=== PATIENT | female | born 1965 | race Caucasian/White ===

== ENCOUNTER 2024-10-22 08:51 | Emergency (ER) | payer BC ==
[~2024-10-22] VITALS: Ht 167.6 cm; Wt 77.1 kg
[2024-10-22] MEDS ORDERED: AMOX-430 PO (09:15)
[2024-10-22] MEDS ORDERED: TDAP [DIPH/PERTUSSIS/TET] 0.5 ML VIAL IM ONE (09:18)
[2024-10-22] MEDS ORDERED: RABIES VACCINE (PCEC)/PF 1 EA KIT IM ONE (09:18)
[2024-10-22] MEDS: RABIES IMMUNE GLOBULIN/PF 150 UNIT/ML VIAL IM ONE (09:43)
[2024-10-22] MEDS: RABIES VACCINE (PCEC)/PF 1 EA KIT IM ONE (09:46)
[2024-10-22] MEDS: TDAP [DIPH/PERTUSSIS/TET] 0.5 ML VIAL IM ONE (09:47)
[2024-10-22 09:50] VITALS: BP 131/69; TEMP 98.2; O2SAT 100
[2024-10-22] MEDS ORDERED: ACETAMINOPHEN 325 MG TABLET ONE (10:58)
== END 2024-10-22 09:51 | disposition home or self-care (01) ==
LOC: ER 08:53
DX: S61.231A Puncture wound without foreign body of left index finger without damage to nail, initial encounter (principal); S61.232A Puncture wound without foreign body of right middle finger without damage to nail, initial encounter; I10 Essential (primary) hypertension; Z88.6 Allergy status to analgesic agent; W53.21XA Bitten by squirrel, initial encounter; Y93.89 Activity, other specified; Y92.89 Other specified places as the place of occurrence of the external cause; Y99.8 Other external cause status
CPT/HCPCS: 99284; 90375; 90675; 90472; 96372; 90471; 90715; A6403

== ENCOUNTER 2024-10-26 11:48 | Emergency (ER) | payer BC ==
[~2024-10-26] VITALS: Ht 165.1 cm; Wt 77.1 kg
[~2024-10-26 11:48] MED LIST: AMOX-430 PO
[2024-10-26] MEDS ORDERED: RABIES VACCINE (PCEC)/PF 1 EA KIT IM ONE (12:17)
[2024-10-26] MEDS: RABIES VACCINE (PCEC)/PF 1 EA KIT IM ONE (12:24)
[2024-10-26 12:52] LABS: BASOPHILS # (AUTO) 0.1 K/uL (0.0-0.2); BASOPHILS % (AUTO) 0.9 % (0.0-2.0); EOSINOPHILS # (AUTO) 0.3 K/uL (0.0-0.7); EOSINOPHILS % (AUTO) 2.9 % (0.0-6.0); HEMATOCRIT 38 % (33-45); HEMOGLOBIN 12.4 g/dL (11.5-14.8); LYMPHOCYTES # (AUTO) 3.6 K/uL (0.8-4.8); LYMPHOCYTES % (AUTO) 34.7 % (20.0-44.0); MEAN CORPUSCULAR HEMOGLOBIN 27 PG (26.0-33.0); MEAN CORPUSCULAR HGB CONC 33 g/dl (31.0-36.0); MEAN CORPUSCULAR VOLUME 83 fL (82-100); MONOCYTES % (AUTO) 9.7 % (2.0-12.0); NEUTROPHILS # (AUTO) 5.3 K/uL (1.8-8.9); NEUTROPHILS % (AUTO) 51.8 % (43.0-81.0); PLATELET COUNT (AUTO) 356 K/uL (150-450); RED BLOOD CELL COUNT(AUTO) 4.62 MIL/uL (4.0-5.2); RED CELL DISTRIBUTION WIDTH 15.2 % (11.5-15.0); WHITE BLOOD COUNT (AUTO) 10.3 K/uL (4.3-11.0)
[2024-10-26 13:02] LABS: CALCIUM, SERUM 9.4 mg/dL (8.5-10.1); CARBON DIOXIDE 27 mmol/L (21-32); CHLORIDE 104 mmol/L (98-107); CREATININE 0.9 mg/dL (0.6-1.3); GLUCOSE 116 mg/dL (74-106); POTASSIUM 3.7 mmol/L (3.5-5.1); SODIUM SERUM 137 mmol/L (136-145); UREA NITROGEN, BLOOD 21 mg/dL (7-18)
[2024-10-26 13:20] LABS: ALANINE AMINOTRANSFERASE 66 U/L (12-78); ALBUMIN 3.2 g/dL (3.4-5.0); ALKALINE PHOSPHATASE 156 U/L (46-116); ASPARTATE AMINOTRANSFERASE 47 U/L (15-37); BILIRUBIN,DIRECT 0.1 mg/dL (0.0-0.2); BILIRUBIN,TOTAL 0.3 mg/dL (0.2-1.0); NT-PRO BNP 104 pg/mL (0-125); TOTAL PROTEIN, SERUM 7.8 g/dL (6.4-8.2)
[2024-10-26 14:00] VITALS: BP 129/71; TEMP 98.1; O2SAT 99
== END 2024-10-26 15:39 | disposition home or self-care (01) ==
LOC: ER 11:51
DX: R07.89 Other chest pain (principal); I10 Essential (primary) hypertension; Z88.6 Allergy status to analgesic agent
CPT/HCPCS: 36415; 71045-TC; 80048-TC; 80076-TC; 83880; 84484-TC; 85025-TC

== ENCOUNTER 2024-10-30 10:00 | Emergency (ER) | payer BC ==
[~2024-10-30] VITALS: Ht 167.6 cm; Wt 79.4 kg
[2024-10-30 10:18] VITALS: BP 144/76; TEMP 98.8; O2SAT 99
[2024-10-30] MEDS ORDERED: DOXY100C2 PO (10:21)
== END 2024-10-30 10:27 | disposition home or self-care (01) ==
LOC: ER 10:03
DX: L03.011 Cellulitis of right finger (principal); L03.012 Cellulitis of left finger; I10 Essential (primary) hypertension; Z79.2 Long term (current) use of antibiotics; Z88.6 Allergy status to analgesic agent